=== PATIENT | female | born 1995 | race Caucasian/White ===

== ENCOUNTER → 2024-08-23 08:32 | Outpatient (REF) | payer BC, SELFPAY | LOC: PNTC 08:32 | PROVIDERS: ATTENDING PHYSICIAN Obstetrics & Gynecology | DX: Z34.82 Encounter for supervision of other normal pregnancy, second trimester (principal) | CPT/HCPCS: 36415; 86850; 86900; 86901; 96372; J2790 ==

== ENCOUNTER 2024-10-28 01:22 | Inpatient (IN) | payer BC, SELFPAY ==
[2024-10-28] MEDS: LR 1000 IV ×3 (02:00→10:13)
[2024-10-28 02:20] VITALS: BP 124/86; BMI 26.5
[2024-10-28 02:25] LABS: Hematocrit 36.3 % (37.0-47.0); Hemoglobin 12.7 g/dL (12.0-16.0); Mean Corp Hgb Conc. 35.0 g/dL (33.0-37.0); Mean Corpuscular Volume 88.1 fL (81.0-99.0); Nucleated Red Blood Cells % 0 %; Platelet Count 204 10^3/uL (130-400); Red Cell Dist. Width 12.6 % (11.5-14.5)
[2024-10-28] MEDS: FENTANYL/BUPIVACAINE 100 EPIDURAL ×2 (02:57→10:14)
[2024-10-28] MEDS: SUBLIMAZE 100 MCG EPIDURAL (02:57)
[2024-10-28] MEDS: PITOCIN 30 UNITS/NSS 500 ML IV ×2 (10:37→15:20)
[2024-10-28] MEDS: METHERGINE INJECTION 0.2 MG IM (14:13)
[2024-10-28] MEDS: TRANEXAMIC ACID 100 IV (14:13)
[2024-10-28] MEDS: MORPHINE SULFATE 2 MG IV (14:26)
[2024-10-28] MEDS: CYTOTEC 800 MCG SL (14:28)
[2024-10-28 14:52] LABS: Hematocrit 33.0 % (37.0-47.0); Hemoglobin 11.5 g/dL (12.0-16.0); Mean Corp Hgb Conc. 34.8 g/dL (33.0-37.0); Mean Corpuscular Volume 88.7 fL (81.0-99.0); Nucleated Red Blood Cells % 0 %; Platelet Count 202 10^3/uL (130-400); Red Cell Dist. Width 12.8 % (11.5-14.5)
[2024-10-28 15:01] LABS: INR 1.02; PT 13.7 Sec (11.4-14.6)
[2024-10-28 15:02] LABS: APTT 23.8 Sec (23.4-35.0)
[2024-10-28 15:06] LABS: Fibrinogen 432 MG/DL (199-459)
[2024-10-28 15:10] LABS: ALT (SGPT) 17 U/L (0-35); AST (SGOT) 34 U/L (14-36); Albumin 3.1 g/dl (3.5-5.0); Alkaline Phosphatase 123 U/L (38-126); Blood Urea Nitrogen 4 mg/dl (7-17); Calcium 8.9 mg/dl (8.4-10.2); Carbon Dioxide 19 mmol/L (22-30); Chloride 112 mmol/L (98-107); Estimated Creatinine Clearance > 125 ml/min; Glucose 121 mg/dl (70-99); Potassium 4.4 mmol/L (3.5-5.1); Sodium 134 mmol/L (135-145); Total Protein 5.4 g/dl (6.3-8.2); eGFR > 60.00
[2024-10-28] MEDS: ANCEF 10 IV (15:21)
[2024-10-28] MEDS: MOTRIN 600 MG PO (18:08)
[2024-10-29] MEDS: MOTRIN 600 MG PO ×3 (05:00→21:02)
[2024-10-29 05:19] LABS: Hematocrit 27.3 % (37.0-47.0); Hemoglobin 9.6 g/dL (12.0-16.0)
[2024-10-29] MEDS: FEOSOL 325 MG PO (08:14)
[2024-10-29] MEDS: COLACE 100 MG PO ×2 (08:15→20:30)
[2024-10-29] MEDS: PRENATAL PLUS 1 TABLET PO (08:15)
[2024-10-29] MEDS: RHOGAM 300 MCG IM (10:36)
[2024-10-30] MEDS: FEOSOL 325 MG PO (08:11)
[2024-10-30] MEDS: PRENATAL PLUS 1 TABLET PO (08:11)
[2024-10-30] MEDS: COLACE 100 MG PO ×2 (08:12)
[2024-10-31 14:03] LABS: Syphilis/T. pallidum Ab Reflex Negative (Negative)
== END 2024-10-30 11:36 | disposition home or self-care (01) | DRG 768 ==
LOC: LDRP 01:22
PROVIDERS: Obstetrics & Gynecology; Student in an Organized Health Care Education/Training Program; ADMITTING PHYSICIAN Obstetrics & Gynecology; FAMILY PHYSICIAN Family Medicine
PROC: 0UQMXZZ Repair Vulva, External Approach (ICD-10-PCS; 2024-10-28)
PROC: 0KQM0ZZ Repair Perineum Muscle, Open Approach (ICD-10-PCS; 2024-10-28)
PROC: 0W3R7ZZ Control Bleeding in Genitourinary Tract, Via Natural or Artificial Opening (ICD-10-PCS; 2024-10-28)
PROC: 10E0XZZ Delivery of Products of Conception, External Approach (ICD-10-PCS; 2024-10-28)
PROC: 3E0234Z Introduction of Serum, Toxoid and Vaccine into Muscle, Percutaneous Approach (ICD-10-PCS; 2024-10-29)
DX: O69.81X0 Labor and delivery complicated by cord around neck, without compression, not applicable or unspecified (principal); Z37.0 Single live birth; O72.1 Other immediate postpartum hemorrhage; O70.1 Second degree perineal laceration during delivery; Z3A.38 38 weeks gestation of pregnancy; O76 Abnormality in fetal heart rate and rhythm complicating labor and delivery; O90.81 Anemia of the puerperium; D64.9 Anemia, unspecified; Z23 Encounter for immunization
CPT/HCPCS: 80053; 85014; 85018; 85025; 85384; 85461; 85610; 85730; 86780; 86850; 86870; 86900; 86901; J2790

== ENCOUNTER → 2025-01-04 09:26 | Outpatient (REF) | payer BC, SELFPAY | LOC: WDC 09:26 | PROVIDERS: ATTENDING PHYSICIAN Obstetrics & Gynecology; FAMILY PHYSICIAN Family Medicine | DX: N63.11 Unspecified lump in the right breast, upper outer quadrant (principal) | CPT/HCPCS: 76642 ==